=== PATIENT | male | born 1995 ===

== ENCOUNTER 2017-08-09 18:26 | Emergency (ER) | payer BC, MEDICAID, OTHER ==
--- NOTE | 2017-08-09 19:32 | EDM.PDOC ---
ED HPI GENERAL MEDICAL PROBLEM - General Chief Complaint: Lower Extremity Injury/Pain Stated Complaint: PAIN LT FOOT Time Seen by Provider: 08/09/17 19:30 Source of Information: Reports: Patient History Limitations: Reports: No Limitations - History of Present Illness INITIAL COMMENTS - FREE TEXT/NARRATIVE: HISTORY AND PHYSICAL: History of present illness: Patient is a 22-year-old male who presents to the emergency room today with complaints of foot pain that started today. States while at work a 75 pound block fell onto his foot at 3 PM this afternoon. He was able to continue on with this today but has been increasingly more painful as he's been bearing weight. Pain is at the first metatarsal going in to the toe. Does have some soft tissue swelling and erythema to the area. Denies any previous injury, surgeries or problems with the affected extremity. Review of systems: As per history of present illness and below otherwise all systems reviewed and negative. Past medical history: As per history of present illness and as reviewed below otherwise noncontributory. Surgical history: As per history of present illness and as reviewed below otherwise noncontributory. Social history: No reported history of drug or alcohol abuse. Family history: As per history of present illness and as reviewed below otherwise noncontributory. Physical exam: General: Well-developed and well-nourished 22-year-old male. Alert and oriented. Nontoxic appearing and in no acute distress. HEENT: Atraumatic, normocephalic, pupils reactive, negative for conjunctival pallor or scleral icterus, mucous membranes moist, throat clear, neck supple, nontender, trachea midline. Lungs: Clear to auscultation, breath sounds equal bilaterally, chest nontender. Heart: S1S2, regular rate and rhythm without overt murmur Abdomen: Soft, nondistended, nontender. Negative for masses or hepatosplenomegaly. Negative for costovertebral tenderness. Pelvis: Stable nontender. Genitourinary: Deferred. Rectal: Deferred. Extremities: Moves all extremities per self without difficulty or deficits, negative for cords or calf pain. Good flexion and extension of the ankle. Capillary refill less than 3 seconds. Strong pedal pulses bilaterally. Some soft tissue swelling noted to the left first metatarsal. Neurovascular unremarkable. Neuro: Awake, alert, oriented. Cranial nerves II through XII unremarkable. Cerebellum unremarkable. Motor and sensory unremarkable throughout. Exam nonfocal. X-ray shows soft tissue swelling of the lateral forefoot over the fifth metatarsal. No fractures or dislocations noted. Place provide patient with an Paul wrap and crutches. He declines any pain medications at this time. Encouraged him to follow up with orthopedics if he continues to have any pain or discomfort. He voices understanding and is agreeable to plan of care. He denies any further questions at this time. Diagnostics: X-ray left foot Therapeutics: Ice, (Declines Toradol) Impression: Left foot contusion Plan: 1. Please use the Paul wrap and crutches for the next 3-5 days. Rest, ice, elevate the extremity. May use Tylenol and/or ibuprofen as needed for pain management. 2. As he discussed, please follow-up with an orthopedic provider if you continue to have any pain (after an initial injury there is always chance of hidden hairline fractures). Orthopedic number has been provided for you. Return to the ED as needed and as discussed. Definitive disposition and diagnosis as appropriate pending reevaluation and review of above. Onset: Today Duration: Hour(s): Location: Reports: Lower Extremity, Left Left Feet Pain Score (Numeric/FACES): 8 - Related Data Allergies Allergy/AdvReac Type Severity Reaction Status Date / Time No Known Allergies Allergy Verified 08/09/17 19:18 Home Meds: Home Meds . [No Known Home Meds] 08/09/17 [History] Social & Family History - Tobacco Use Smoking Status *Q: Never Smoker Years of Tobacco use: 1 Second Hand Smoke Exposure: No - Caffeine Use Caffeine Use: Reports: None - Alcohol Use Number of Drinks Per Day: 2 - Recreational Drug Use Recreational Drug Use: No Review of Systems - Review of Systems Review Of Systems: ROS reveals no pertinent complaints other than HPI. ED EXAM, GENERAL - Physical Exam Exam: See Below (See dictation) Course - Vital Signs Last Recorded V/S: Last Vital Signs Temp 98.7 F 08/09/17 19:16 Pulse 76 08/09/17 19:16 Resp 18 08/09/17 19:16 BP 127/85 08/09/17 19:16 Pulse Ox 97 08/09/17 19:16 - Orders/Labs/Meds Orders: Active Orders 24 hr Category Date Time Status Foot 2V Lt [CR] Stat Exams 08/09/17 19:30 Taken Departure - Departure Time of Disposition: 20:04 Disposition: Home, Self-Care 01 Clinical Impression: Foot contusion Qualifiers: Encounter type: initial encounter Laterality: left Qualified Code(s): S90.32XA - Contusion of left foot, initial encounter - Discharge Information Referrals: PCP,None [Primary Care Provider] - Forms: ED Department Discharge Additional Instructions: My general discharge The following information is given to patients seen in the emergency department who are being discharged to home. This information is to outline your options for follow-up care. We provide all patients seen in our emergency department with a follow-up referral. The need for follow-up, as well as the timing and circumstances, are variable depending upon the specifics of your emergency department visit. If you don't have a primary care physician on staff, we will provide you with a referral. We always advise you to contact your personal physician following an emergency department visit to inform them of the circumstance of the visit and for follow-up with them and/or the need for any referrals to a consulting specialist. The emergency department will also refer you to a specialist when appropriate. This referral assures that you have the opportunity for follow-up care with a specialist. All of these measure are taken in an effort to provide you with optimal care, which includes your follow-up. Under all circumstances we always encourage you to contact your private physician who remains a resource for coordinating your care. When calling for follow-up care, please make the office aware that this follow-up is from your recent emergency room visit. If for any reason you are refused follow-up, please contact the [facility] Emergency Department at and asked to speak to the emergency department charge nurse. [facility] - Orth[facility] Professional Building [address] [place] [address], [address] [place] [address] 1. Please use the Paul wrap and crutches for the next 3-5 days. Rest, ice, elevate the extremity. May use Tylenol and/or ibuprofen as needed for pain management. 2. As he discussed, please follow-up with an orthopedic provider if you continue to have any pain (after an initial injury there is always chance of hidden hairline fractures). Orthopedic number has been provided for you. Return to the ED as needed and as discussed. - My Orders Last 24 Hours: My Active Orders 08/09/17 19:30 Foot 2V Lt [CR] Stat - Assessment/Plan Last 24 Hours: My Active Orders 08/09/17 19:30 Foot 2V Lt [CR] Stat
[2017-08-09 20:19] VITALS: BP 148/67
--- NOTE | 2017-08-10 15:37 | CR ---
EXAM DATE: 08/09/17 PATIENT'S AGE: 22 Patient: CAREN HUTCHINS Facility: [place], [place] Site . Site : [id number] Study: XRay Extremity Left foot [id number] 7:49:33 PM Ordering Physician: Doctor Shah Final Report: INDICATION: Pain after injury. TECHNIQUE: Two views. IMPRESSION: Soft tissue swelling lateral forefoot over the 5th metatarsal level. No acute fracture. No traumatic malalignment. Curvilinear subtle lucency through the medial pole of the navicular on the AP view appears to be artifactual from overlying soft tissues. Correlation with point tenderness and repeat imaging of the ankle as indicated. Dictated by Morales Saxena MD @ Aug 09 2017 7:55PM (Electronic Signature) Report Signed by Proxy. SHERRILL
== END 2017-08-09 20:19 | disposition home or self-care (01) ==
LOC: MW.ED 18:26
DX: S90.32XA Contusion of left foot, initial encounter (principal); W20.8XXA Other cause of strike by thrown, projected or falling object, initial encounter
CPT/HCPCS: 73620-26-LT; 73620-LT; 99282; 99283